=== PATIENT | female | born 1960 | race Caucasian/White ===

== ENCOUNTER 2020-04-03 21:53 | Emergency (ER) | payer OTHER ==
[~2020-04-03] VITALS: Ht 160 cm; Wt 55.3 kg
[2020-04-03] MEDS ORDERED: EFFEXOR XR75 MG PO (21:58)
[2020-04-03] MEDS ORDERED: CLONAZEPAM 0.50.5 M1 PO (21:58)
[2020-04-03] MEDS ORDERED: MEDROLDOSEPACK PO (21:59)
[2020-04-03] MEDS ORDERED: TRAMADOL 50 MG50 MG PO (23:40)
[2020-04-03] MEDS ORDERED: NAPROSYN500 MG PO (23:40)
[2020-04-04 00:05] VITALS: BP 124/73
== END 2020-04-04 00:13 | disposition home or self-care (01) ==
LOC: ER 21:53
DX: S30.0XXA Contusion of lower back and pelvis, initial encounter (principal); S20.212A Contusion of left front wall of thorax, initial encounter; S60.052A Contusion of left little finger without damage to nail, initial encounter; Z79.899 Other long term (current) drug therapy; Y04.8XXA Assault by other bodily force, initial encounter; Y93.89 Activity, other specified; Y92.89 Other specified places as the place of occurrence of the external cause; Y99.8 Other external cause status